=== PATIENT | male | born 1960 | race Caucasian/White ===

== ENCOUNTER 2023-03-15 14:50 | Inpatient (IN) | payer SELFPAY ==
[~2023-03-15] VITALS: Ht 172 cm; Wt 94.6 kg
--- NOTE | 2023-03-15 15:24 | ED Chest Pain ---
General Chief Complaint: Chest Pain Stated Complaint: SOA|COUGH|CONGESTION Source: patient Exam Limitations: no limitations History of Present Illness Date Seen by Provider: Mar 15, 2023 Time Seen by Provider: 15:21 Initial Comments Patient is a 63-year-old male with a history of arthritis, who presents ED with flulike symptoms. Symptoms started last after he was karen a shed. Started feeling sick fatigue weak cough sore throat. States he had a low-grade temperature. Started having diarrhea several bouts which ended earlier today. Reports a wet productive cough with shortness of breath. Reports reddish-brown sputum production with the cough. Associate shortness of breath. Patient reports developed left-sided chest pain this morning with cough. Patient states the weakness and fatigue is getting worse. no history of A-fib. On arrival A- fib. Not currently on blood thinners. Denies history of coronary artery disease, COPD diabetes, hypertension. Patient denies history of smoking. Patient has been taking ibuprofen at home. Allergies and Home Medications Allergies Coded Allergies: codeine (Verified Allergy, Unknown, 03/15/23) Patient Home Medication List Home Medication List Reviewed: Yes Review of Systems Review of Systems Constitutional: chills; No diaphoresis; fever, malaise EENTM: No Eye Pain Respiratory: Cough, Shortness of Air Cardiovascular: Chest Pain Gastrointestinal: Denies Abdominal Pain; Diarrhea; Denies Nausea, Denies Vomiting Genitourinary: Denies Burning, Denies Discharge, Denies Drainage Musculoskeletal: No back pain Skin: No change in color, No change in hair/nails All Other Systems Reviewed Negative Unless Noted: Yes Physical Exam Vital Signs Vital Signs - First Documented 03/15/23 15:05 Temp 36.3 Pulse 124 Resp 20 B/P (MAP) 114/95 (101) Pulse Ox 96 O2 Delivery Room Air Capillary Refill : Height, Weight, BMI Height: '" Weight: lbs. oz. kg; BMI Method: General Appearance: No Apparent Distress, WD/WN HEENT: PERRL/EOMI, TMs Normal, Normal ENT Inspection, Pharynx Normal Neck: Full Range of Motion, Non Tender, Supple Respiratory: Chest Non Tender, Lungs Clear, Normal Breath Sounds, No Accessory Muscle Use, No Respiratory Distress Cardiovascular: No Edema, No Gallop, No JVD, No Murmur, Irregularly Irregular Gastrointestinal: Normal Bowel Sounds, No Organomegaly, No Pulsatile Mass, Non Tender Extremity: Normal Capillary Refill, Normal Inspection, Normal Range of Motion Neurologic/Psychiatric: Alert, Oriented x3, No Motor/Sensory Deficits, Normal Mood/Affect, 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 and 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 cork II-XII Norm as Tested Skin: Normal Color, Warm/Dry Focused Exam Lactate Level 03/15/23 15:25: Lactic Acid Level 1.02 Lactic Acid Level Laboratory Tests Test 03/15/23 15:25 Lactic Acid Level 1.02 MMOL/L (0.50-2.00) Progress/Results/Core Measures Results/Orders Lab Results Laboratory Tests Test 03/15/23 15:25 03/15/23 16:55 Range/Units White Blood Count 10.2 4.3-11.0 10^3/uL Red Blood Count 5.22 4.30-5.52 10^6/uL Hemoglobin 15.6 13.3-17.7 g/dL Hematocrit 44 40-54 % Mean Corpuscular Volume 85 80-99 fL Mean Corpuscular Hemoglobin 30 25-34 pg Mean Corpuscular Hemoglobin Concent 35 32-36 g/dL Red Cell Distribution Width 12.4 10.0-14.5 % Platelet Count 296 130-400 10^3/uL Mean Platelet Volume 9.9 9.0-12.2 fL Immature Granulocyte % (Auto) 3 % Neutrophils (%) (Auto) 75 42-75 % Lymphocytes (%) (Auto) 12 12-44 % Monocytes (%) (Auto) 10 0-12 % Eosinophils (%) (Auto) 0 0-10 % Basophils (%) (Auto) 0 0-10 % Neutrophils # (Auto) 7.7 1.8-7.8 10^3/uL Lymphocytes # (Auto) 1.2 1.0-4.0 10^3/uL Monocytes # (Auto) 1.0 0.0-1.0 10^3/uL Eosinophils # (Auto) 0.0 0.0-0.3 10^3/uL Basophils # (Auto) 0.0 0.0-0.1 10^3/uL Immature Granulocyte # (Auto) 0.3 H 0.0-0.1 10^3/uL Prothrombin Time 15.3 H 12.2-14.7 SEC INR Comment 1.2 0.8-1.4 Activated Partial Thromboplast Time 41 H 24-35 SEC D-Dimer 1.66 H 0.00-0.49 UG/ML Sodium Level 133 L 135-145 MMOL/L Potassium Level 3.8 3.6-5.0 MMOL/L Chloride Level 100 98-107 MMOL/L Carbon Dioxide Level 19 L 21-32 MMOL/L Anion Gap 14 5-14 MMOL/L Blood Urea Nitrogen 22 H 7-18 MG/DL Creatinine 0.96 0.60-1.30 MG/DL Estimat Glomerular Filtration Rate 89 BUN/Creatinine Ratio 23 Glucose Level 102 70-105 MG/DL Lactic Acid Level 1.02 0.50-2.00 MMOL/L Calcium Level 9.1 8.5-10.1 MG/DL Corrected Calcium 9.5 8.5-10.1 MG/DL Total Bilirubin 0.6 0.1-1.0 MG/DL Aspartate Amino Transf (AST/SGOT) 22 5-34 U/L Alanine Aminotransferase (ALT/SGPT) 23 0-55 U/L Alkaline Phosphatase 74 40-136 U/L Troponin I < 0.028 <0.028 NG/ML B-Type Natriuretic Peptide 294.8 H <100.0 PG/ML Total Protein 7.3 6.4-8.2 GM/DL Albumin 3.5 3.2-4.5 GM/DL Influenza Type A (RT-PCR) Not Detected Not Detecte Influenza Type B (RT-PCR) Not Detected Not Detecte SARS-CoV-2 RNA (RT-PCR) Not Detected Not Detecte Urine Color YELLOW Urine Clarity CLEAR Urine pH 6.5 5-9 Urine Specific [place] 1.015 L 1.016-1.022 Urine Protein 1+ H NEGATIVE Urine Glucose (UA) NEGATIVE NEGATIVE Urine Ketones 2+ H NEGATIVE Urine Nitrite NEGATIVE NEGATIVE Urine Bilirubin 1+ H NEGATIVE Urine Urobilinogen 1.0 < = 1.0 MG/DL Urine Leukocyte Esterase NEGATIVE NEGATIVE Urine RBC (Auto) NEGATIVE NEGATIVE Urine RBC NONE /HPF Urine WBC RARE /HPF Urine Squamous Epithelial Cells NONE /HPF Urine Crystals NONE /LPF Urine Bacteria TRACE /HPF Urine Casts NONE /LPF Urine Mucus NEGATIVE /LPF Urine Culture Indicated CULTURE PENDING My Orders Orders - EVELYN VO Ekg Tracing (03/15/23 15:14) Cbc With Automated Diff (03/15/23 15:18) Comprehensive Metabolic Panel (03/15/23 15:18) Blood Culture (03/15/23 15:18) Sputum Culture (03/15/23 15:18) Urinalysis (03/15/23 15:18) Urine Culture (03/15/23 15:18) Protime With Inr (03/15/23 15:18) Partial Thromboplastin Time (03/15/23 15:18) Chest 1 View, Ap/Pa Only (03/15/23 15:18) Ed Iv/Invasive Line Start (03/15/23 15:18) O2 (03/15/23 15:18) Lactic Acid Analyzer (03/15/23 15:18) Influenza A And B By Pcr (03/15/23 15:18) Ns Iv 1000 Ml (Sodium Chloride 0.9%) (03/15/23 15:30) Ceftriaxone Iv/Im (Rocephin Iv/Im) (03/15/23 15:30) Covid 19 Inhouse Test (03/15/23 15:18) Troponin I [place] (03/15/23 15:18) Bnp [place] (03/15/23 15:18) Diltiazem Injection (Cardizem Injection) (03/15/23 15:30) Ns Iv 1000 Ml (Sodium Chloride 0.9%) (03/15/23 16:29) Fibrin Degradation Products (03/15/23 16:41) Ct Angio Chest W (R/O Pe) (03/15/23 17:23) Iohexol Injection (Omnipaque 350 Mg/Ml 1 (03/15/23 17:45) Ns (Ivpb) (Sodium Chloride 0.9% Ivpb Bag (03/15/23 17:45) Azithromycin Injection (Zithromax Inject (03/15/23 18:00) Ed Admission (Communication) (03/15/23 17:57) Medications Given in ED Current Medications Medications Dose Ordered Sig/Diana Route Start Time Stop Time Status Last Admin Dose Admin Azithromycin 500 mg/Sodium Chloride 250 ml @ 250 mls/hr ONCE ONCE IV 03/15/23 18:00 03/15/23 18:59 DC 03/15/23 18:15 250 MLS/HR Ceftriaxone Sodium 1000 mg/ Sodium Chloride 50 ml @ 100 mls/hr ONCE ONCE IV 03/15/23 15:30 03/15/23 15:59 DC 03/15/23 16:21 100 MLS/HR Diltiazem HCl 10 mg ONCE ONCE IVP 03/15/23 15:30 03/15/23 15:31 DC 03/15/23 16:22 10 MG Iohexol 100 ml ONCE ONCE IV 03/15/23 17:45 03/15/23 17:46 DC 03/15/23 17:41 88 ML Sodium Chloride 100 ml ONCE ONCE IV 03/15/23 17:45 03/15/23 17:46 DC 03/15/23 17:41 70 ML Vital Signs/I&O 03/15/23 03/15/23 15:05 16:22 Temp 36.3 Pulse 124 123 Resp 20 B/P (MAP) 114/95 (101) 104/66 Pulse Ox 96 O2 Delivery Room Air Comment Atrial fibrillation at 126 bpm, QRS duration 100 MS, QTc 436 MS Departure Communication (PCP) Patient is a 63-year-old male who presents to the ED for flulike symptoms since last after karen a shed. Patient reports brownish sputum production. Shortness of breath. Does report some chest pain today. Patient on arrival heart rate was near 140 appear to be in A-fib with RVR new onset. Due to new onset A-fib with RVR cardiac work-up, chest x-ray general lab work as well as septic work-up with added blood cultures and lactic acid. CBC was grossly unremarkable. CMP showed a sodium 133. Normal troponin. BNP just above 200. Chest x-ray concerning for pneumonia. Patient D-dimer 1.66. Patient heart rate continue to fluctuate between 120 and 144 bpm. Patient Was given 10 mg of Cardizem with near improvement to about 101 bpm. Patient was not started on a Cardizem drip. Due to elevated D-dimer CT angio of the chest was ordered which was negative for PE but did note pneumonia. No pneumothorax. Patient was started on a liter of fluid. Normal lactic acid. Does not appear septic. COVID influenza was negative. Patient was given Rocephin initially on arrival. Added azithromycin for community-acquired pneumonia. Patient was discussed with hospitalist Dr. Gallagher who accepts patient. Patient will be admitted to the ICU as he may require a Cardizem drip. Not currently on any anticoagulant. Anticoagulant will be provided by Dr. Gallagher. Will consult with Dr. Javier Impression Primary Impression: Pneumonia Additional Impression: Afib Disposition: ADMITTED INPATIENT Condition: Stable Admissions Decision to Admit Reason: Admit from ER (General) Decision to Admit/Date: Mar 15, 2023 Time/Decision to Admit Time: 16:43 Departure-Patient Inst. Referrals: URIAH LIU (PCP/Family) Primary Care Physician EVELYN VO Mar 15, 2023 15:24
[2023-03-15] MEDS ORDERED: NS IV 1000 ML 1,000 ML IV SCH (15:30)
[2023-03-15] MEDS ORDERED: cefTRIAXone IV/IM 1,000 MG in NS (IVPB) 50 ML IV ONE (15:30)
[2023-03-15 16:00] LABS: ALBUMIN 3.5 GM/DL (3.2-4.5); CHLORIDE 100 MMOL/L (98-107); POTASSIUM 3.8 MMOL/L (3.6-5.0); SODIUM 133 MMOL/L (135-145)
[2023-03-15 16:01] LABS: CALCIUM 9.1 MG/DL (8.5-10.1)
[2023-03-15 16:02] LABS: GLUCOSE 102 MG/DL (70-105); TOTAL PROTEIN 7.3 GM/DL (6.4-8.2)
[2023-03-15 16:03] LABS: CARBON DIOXIDE 19 MMOL/L (21-32)
[2023-03-15 16:04] LABS: BILIRUBIN,TOTAL 0.6 MG/DL (0.1-1.0)
[2023-03-15 16:06] LABS: ALKALINE PHOSPHATASE 74 U/L (40-136); CREATININE SERUM 0.96 MG/DL (0.60-1.30); GFR ESTIMATED 89
[2023-03-15 16:07] LABS: BUN/CREATININE RATIO 23; INR 1.2 (0.8-1.4); PROTHROMBIN TIME PATIENT 15.3 SEC (12.2-14.7)
[2023-03-15 16:09] LABS: ALANINE AMINOTRANSFERASE 23 U/L (0-55); BASOPHILS % (AUTO) 0 % (0-10); EOSINOPHILS % (AUTO) 0 % (0-10); HEMATOCRIT 44 % (40-54); HEMOGLOBIN 15.6 g/dL (13.3-17.7); LYMPHOCYTES # (AUTO) 1.2 10^3/uL (1.0-4.0); LYMPHOCYTES % (AUTO) 12 % (12-44); MEAN CORPUSCULAR HEMOGLOBIN 30 pg (25-34); MEAN CORPUSCULAR HGB CONC 35 g/dL (32-36); MEAN CORPUSCULAR VOLUME 85 fL (80-99); MEAN PLATELET VOLUME 9.9 fL (9.0-12.2); MONOCYTES % (AUTO) 10 % (0-12); NEUTROPHILS # (AUTO) 7.7 10^3/uL (1.8-7.8); NEUTROPHILS % (AUTO) 75 % (42-75); PLATELET COUNT 296 10^3/uL (130-400); WHITE BLOOD COUNT 10.2 10^3/uL (4.3-11.0)
--- NOTE | 2023-03-15 16:12 | Diagnostic Imaging Report ---
CHEST 1 VIEW, AP/PA ONLY INDICATION: Chest pain. COMPARISON: None available. FINDINGS: Consolidations are present in the medial aspect of the right lung base. No pleural effusion or pneumothorax. Normal heart size. IMPRESSION: 1. Right basilar consolidations are likely due to pneumonia. Dictated by: Dictated on workstation # [id number]
[2023-03-15] MEDS ORDERED: NS IV 1000 ML 1,000 ML IV STA (16:29)
[2023-03-15 17:01] LABS: CLARITY,URINE CLEAR; COLOR,URINE YELLOW; GLUCOSE, URINE (UA) NEGATIVE (NEGATIVE); KETONES,URINE 2+ (NEGATIVE); LEUKOCYTE ESTERASE ,URINE NEGATIVE (NEGATIVE); NITRITE,URINE NEGATIVE (NEGATIVE); PH,URINE 6.5 (5-9); PROTEIN,URINE 1+ (NEGATIVE)
[2023-03-15 17:21] LABS: BACTERIA,URINE TRACE /HPF; WBC,URINE RARE /HPF
--- NOTE | 2023-03-15 17:28 | History & Physical-Hospitalist ---
History of Present Illness HPI/Chief Complaint Patient is 63-year-old male who presented to the emergency department due to shortness of breath and cough. Reports his symptoms started roughly 4 days ago and have progressed since then. He reports feeling chilled and cold and just overall not feeling well. He was found to have a pneumonia on imaging and incidentally found to be in atrial fibrillation with rapid ventricular rate. His heart rate was into the 130s. He denies any history of this. He denies any chest pain or palpitations. He does have some shortness of breath that started roughly 4 days ago. He was given IV Cardizem in the ER which improved his rate though he remains in atrial fibrillation. He is being admitted to observation for further cardiac work-up and IV antibiotics. Source: patient Date Seen 03/15/23 Time Seen by a Provider: 17:24 Attending Physician Vitor Richey PCP Admitting Physician: Attending Physician: Referring Physician Date of Admission Home Medications & Allergies Home Medications Reviewed patient Home Medication Reconciliation performed by pharmacy medication reconciliations lay out technician and/or nursing. Patients Allergies have been reviewed. Allergies Allergies Coded Allergies codeine (Verified Allergy, Unknown, 03/15/23) Past Zqdauoq-Migtsr-Lzbduo Hx Current Status Communicates: Verbally Primary Language: Upper Sorbian Preferred Spoken Language: Upper Sorbian Review of Systems Constitutional: see HPI Physical Exam Physical Exam Vital Signs Vital Signs - First Documented 03/15/23 15:05 Temp 36.3 Pulse 124 Resp 20 B/P (MAP) 114/95 (101) Pulse Ox 96 O2 Delivery Room Air Capillary Refill : Height, Weight, BMI Height: '" Weight: lbs. oz. kg; 30.00 BMI Method: General Appearance: No Apparent Distress, WD/WN Respiratory: No Accessory Muscle Use, No Respiratory Distress, Crackles (on right in base) Cardiovascular: Regular Rate, Rhythm, No Murmur Gastrointestinal: Normal Bowel Sounds, Non Tender, Soft Neurologic/Psychiatric: Alert, Oriented x3 Results Results/Procedures Labs Laboratory Tests 03/15/23 15:25 03/16/23 03:51 Patient resulted labs reviewed. Imaging: Reviewed Imaging Report Imaging [facility], [place] NAME: DRISS ROMAN [facility] REC#: [id number] PT STATUS: REG ER : 1960 PHYSICIAN: EVELYN VO ADMIT DATE: 03/15/23/ER Draft Date of Exam:03/15/23 CHEST 1 VIEW, AP/PA ONLY CHEST 1 VIEW, AP/PA ONLY INDICATION: Chest pain. COMPARISON: None available. FINDINGS: Consolidations are present in the medial aspect of the right lung base. No pleural effusion or pneumothorax. Normal heart size. IMPRESSION: 1. Right basilar consolidations are likely due to pneumonia. Dictated on workstation # [id number] Dict: 03/15/23 1610 Trans: 03/15/23 1611 [id number] Interpreted by: HONEY ROCHA MD Electronically signed by: Assessment/Plan Admission Diagnosis Sepsis due to CAP A fib with RVR Admission Status: Observation Assessment and Plan Sepsis due to CAP [place] with leukocytosis on arrival Continue CAP coverage MAT protocol Await cultures A fib with RVR New onset Cardiology consulted, appreciate recs Rate improved with cardizem Start oral cardizem Start eliquis for stroke ppx DVT ppx: Eliquis as above KATIE JOVEL MD Mar 15, 2023 5:27 pm
[2023-03-15] MEDS ORDERED: IOHEXOL 350 MG/ML 100 ML (OMNIPAQUE 350) VIAL IV ONE (17:45)
[2023-03-15] MEDS ORDERED: NS 100 ML (IVPB) BAG IV ONE (17:45)
--- NOTE | 2023-03-15 17:51 | Diagnostic Imaging Report ---
INDICATION: Left-sided chest pain. There are patchy infiltrates at both lung bases right greater than left. There is a moderate-sized sliding hiatal hernia. There are no pulmonary emboli. There is no evidence of right ventricular strain. There is some calcific atherosclerosis of aorta but no evidence for aneurysm. IMPRESSION: Patchy bilateral basilar infiltrate suspicious for pneumonia. Hiatal hernia. No evidence for pulmonary embolism. Dictated by: Dictated on workstation # [id number]
[2023-03-15] MEDS ORDERED: AZITHROMYCIN INJECTION 500 MG in NS (IVPB) 250 ML IV ONE ×2 (18:00→18:30)
[2023-03-15] MEDS ORDERED: ONDANSETRON 4 MG/2 ML (SDV) Z0FRAN IV PRN (18:30)
[2023-03-15] MEDS ORDERED: BISACODYL 10 MG SUPP (DULCOLAX) PR PRN (18:30)
[2023-03-15] MEDS ORDERED: ACETAMINOPHEN 325 MG TABLET PO PRN (18:30)
[2023-03-15] MEDS ORDERED: ANTACID SUSP 30 ML UDC (MYLANTA) PO PRN (18:30)
[2023-03-15] MEDS ORDERED: polyethylene glycoL POWDER 17 GM (MIRALAX) PACK PO PRN (18:30)
[2023-03-15] MEDS ORDERED: CALCIUM CARBONATE 500 MG (TUMS) TAB.CHEW PO PRN (18:30)
[2023-03-15] MEDS ORDERED: PATIENT MAY USE OWN MEDS, ALL PO SCH (18:30)
[2023-03-15] MEDS ORDERED: dilTIAZem120 MG (CARDIZEM CD) CAP PO NR (18:45)
[2023-03-15] MEDS: NS IV 1000 ML 1,000 ML IV SCH (18:54)
[2023-03-15 19:55] LABS: BILIRUBIN,URINE 1+ (NEGATIVE)
[2023-03-15] MEDS: APIXABAN 5 MG (ELIQUIS) TABLET PO SCH (21:04)
[2023-03-15] MEDS: MELATONIN 3 MG TABLET PO PRN (23:41)
[2023-03-16] MEDS: NS IV 1000 ML 1,000 ML IV SCH ×3 (03:08→16:56)
[2023-03-16 04:54] LABS: HEMATOCRIT 42 % (40-54); HEMOGLOBIN 14.6 g/dL (13.3-17.7); MEAN CORPUSCULAR HEMOGLOBIN 30 pg (25-34); MEAN CORPUSCULAR HGB CONC 35 g/dL (32-36); MEAN CORPUSCULAR VOLUME 86 fL (80-99); MEAN PLATELET VOLUME 10.1 fL (9.0-12.2); PLATELET COUNT 253 10^3/uL (130-400); WHITE BLOOD COUNT 7.7 10^3/uL (4.3-11.0)
[2023-03-16 07:05] LABS: CALCIUM 8.6 MG/DL (8.5-10.1); CREATININE SERUM 0.87 MG/DL (0.60-1.30); POTASSIUM 3.9 MMOL/L (3.6-5.0)
[2023-03-16] MEDS: dilTIAZem120 MG (CARDIZEM CD) CAP PO SCH (08:03)
[2023-03-16] MEDS: APIXABAN 5 MG (ELIQUIS) TABLET PO SCH ×2 (08:03→20:42)
[2023-03-16] MEDS: AZITHROMYCIN 250 MG TAB (ZITHROMAX) PO SCH (08:03)
--- NOTE | 2023-03-16 08:05 | Consultation-Cardiology ---
HPI-Cardiology Cardiology Consultation Date of Consultation 03/16/23 Date of Admission Time Seen by Provider: 08:02 Indication: Atrial fibrillation HPI 63-year-old gentleman with a history of arthritis, had fever and cough. Generalized weakness. Low-grade temperature, started to have diarrhea. Came into the emergency room and noted to be in atrial fibrillation. Had pneumonia and started on antibiotics. Still having cough and dyspnea, still borderline tachycardic. No previous cardiac history. No history of atrial fibrillation. Home Medications & Allergies Allergies: Coded Allergies: codeine (Verified Allergy, Unknown, 03/15/23) Home Medication List Reviewed: Yes AGR-Bounlm-Ymspar Hx Patient Social History Marital Status: Employed/Student: employed Have you traveled recently?: No Alcohol Use?: No Past Medical History Discussed below Family Medical History Significant Family History: No Pertinent Family Hx Review of Systems-General Review of Systems Constitutional: chills; No diaphoresis; fever, malaise EENTM: see HPI, no symptoms reported Respiratory: no symptoms reported, see HPI Cardiovascular: see HPI; No chest pain, No edema, No Hx of Intervention; palp itations; No syncope, No vascular heart diseas, No other Gastrointestinal: no symptoms reported, see HPI Genitourinary: no symptoms reported, see HPI Musculoskeletal: No back pain Skin: No change in color, No change in hair/nails Psychiatric/Neurological: No Symptoms Reported, See HPI All Other Systems Reviewed Negative Unless Noted: Yes Reviewed Test Results Reviewed Test Results Lab Laboratory Tests Test 03/15/23 15:25 03/15/23 16:55 03/16/23 03:51 Range/Units White Blood Count 10.2 7.7 4.3-11.0 10^3/uL Red Blood Count 5.22 4.90 4.30-5.52 10^6/uL Hemoglobin 15.6 14.6 13.3-17.7 g/dL Hematocrit 44 42 40-54 % Mean Corpuscular Volume 85 86 80-99 fL Mean Corpuscular Hemoglobin 30 30 25-34 pg Mean Corpuscular Hemoglobin Concent 35 35 32-36 g/dL Red Cell Distribution Width 12.4 12.6 10.0-14.5 % Platelet Count 296 253 130-400 10^3/uL Mean Platelet Volume 9.9 10.1 9.0-12.2 fL Immature Granulocyte % (Auto) 3 % Neutrophils (%) (Auto) 75 42-75 % Lymphocytes (%) (Auto) 12 12-44 % Monocytes (%) (Auto) 10 0-12 % Eosinophils (%) (Auto) 0 0-10 % Basophils (%) (Auto) 0 0-10 % Neutrophils # (Auto) 7.7 1.8-7.8 10^3/uL Lymphocytes # (Auto) 1.2 1.0-4.0 10^3/uL Monocytes # (Auto) 1.0 0.0-1.0 10^3/uL Eosinophils # (Auto) 0.0 0.0-0.3 10^3/uL Basophils # (Auto) 0.0 0.0-0.1 10^3/uL Immature Granulocyte # (Auto) 0.3 H 0.0-0.1 10^3/uL Prothrombin Time 15.3 H 12.2-14.7 SEC INR Comment 1.2 0.8-1.4 Activated Partial Thromboplast Time 41 H 24-35 SEC D-Dimer 1.66 H 0.00-0.49 UG/ML Sodium Level 133 L 136 135-145 MMOL/L Potassium Level 3.8 3.9 3.6-5.0 MMOL/L Chloride Level 100 104 98-107 MMOL/L Carbon Dioxide Level 19 L 18 L 21-32 MMOL/L Anion Gap 14 14 5-14 MMOL/L Blood Urea Nitrogen 22 H 16 7-18 MG/DL Creatinine 0.96 0.87 0.60-1.30 MG/DL Estimat Glomerular Filtration Rate 89 98 BUN/Creatinine Ratio 23 18 Glucose Level 102 92 70-105 MG/DL Lactic Acid Level 1.02 0.50-2.00 MMOL/L Calcium Level 9.1 8.6 8.5-10.1 MG/DL Corrected Calcium 9.5 8.5-10.1 MG/DL Total Bilirubin 0.6 0.1-1.0 MG/DL Aspartate Amino Transf (AST/SGOT) 22 5-34 U/L Alanine Aminotransferase (ALT/SGPT) 23 0-55 U/L Alkaline Phosphatase 74 40-136 U/L Troponin I < 0.028 <0.028 NG/ML B-Type Natriuretic Peptide 294.8 H <100.0 PG/ML Total Protein 7.3 6.4-8.2 GM/DL Albumin 3.5 3.2-4.5 GM/DL Influenza Type A (RT-PCR) Not Detected Not Detecte Influenza Type B (RT-PCR) Not Detected Not Detecte SARS-CoV-2 RNA (RT-PCR) Not Detected Not Detecte Urine Color YELLOW Urine Clarity CLEAR Urine pH 6.5 5-9 Urine Specific [place] 1.015 L 1.016-1.022 Urine Protein 1+ H NEGATIVE Urine Glucose (UA) NEGATIVE NEGATIVE Urine Ketones 2+ H NEGATIVE Urine Nitrite NEGATIVE NEGATIVE Urine Bilirubin 1+ H NEGATIVE Urine Urobilinogen 1.0 < = 1.0 MG/DL Urine Leukocyte Esterase NEGATIVE NEGATIVE Urine RBC (Auto) NEGATIVE NEGATIVE Urine RBC NONE /HPF Urine WBC RARE /HPF Urine Squamous Epithelial Cells NONE /HPF Urine Crystals NONE /LPF Urine Bacteria TRACE /HPF Urine Casts NONE /LPF Urine Mucus NEGATIVE /LPF Urine Culture Indicated CULTURE PENDING Physical Exam Physical Exam Vital Signs Vital Signs - First Documented 03/15/23 15:05 Temp 36.3 Pulse 124 Resp 20 B/P (MAP) 114/95 (101) Pulse Ox 96 O2 Delivery Room Air Capillary Refill : Height, Weight, BMI Height: '" Weight: lbs. oz. kg; 32.21 BMI Method: General Appearance: No Apparent Distress, WD/WN HEENT: PERRL/EOMI, TMs Normal, Normal ENT Inspection, Pharynx Normal Neck: Full Range of Motion, Non Tender, Supple Respiratory: Chest Non Tender, Lungs Clear, Normal Breath Sounds, No Accessory Muscle Use, No Respiratory Distress Cardiovascular: No Edema, No Gallop, No JVD, No Murmur, Irregularly Irregular Gastrointestinal: Normal Bowel Sounds, No Organomegaly, No Pulsatile Mass, Non Tender Extremity: Normal Capillary Refill, Normal Inspection, Normal Range of Motion Neurologic/Psychiatric: Alert, Oriented x3, No Motor/Sensory Deficits, Normal Mood/Affect, 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 Probably new onset. Unknown duration. Cannot tolerate PAOLA due to the pneumonia Pneumonia, right lower lobe, managed by medical team Fever and chills secondary to pneumonia Palpitation. WALT REYES MD Mar 16, 2023 08:05
[2023-03-16] MEDS ORDERED: dilTIAZem DRIP PRE-MIX 125 ML IV SCH (08:15)
[2023-03-16] MEDS: dilTIAZem DRIP PRE-MIX 125 ML IV SCH ×2 (09:23→19:17)
[2023-03-16] MEDS: guaiFENesin/DM (ROBITUSSIN DM) 10 ML UDC PO PRN ×3 (09:47→22:26)
--- NOTE | 2023-03-16 11:09 | Progress Note - Hospitalist ---
Subjective HPI/CC On Admission Date Seen by Provider: Mar 16, 2023 Patient is 63-year-old male who presented to the emergency department due to shortness of breath and cough. Reports his symptoms started roughly 4 days ago and have progressed since then. He reports feeling chilled and cold and just overall not feeling well. He was found to have a pneumonia on imaging and incidentally found to be in atrial fibrillation with rapid ventricular rate. His heart rate was into the 130s. He denies any history of this. He denies any chest pain or palpitations. He does have some shortness of breath that started roughly 4 days ago. He was given IV Cardizem in the ER which improved his rate though he remains in atrial fibrillation. He is being admitted to observation for further cardiac work-up and IV antibiotics. Subjective/Events-last exam Pt reports feeling about the same. No new complaints. Focused Exam Lactate Level 03/15/23 15:25: Lactic Acid Level 1.02 Objective Exam Vital Signs Vital Signs Date Time Temp Pulse Resp B/P (MAP) Pulse Ox O2 Delivery O2 Flow Rate FiO2 03/16/23 10:00 89 17 108/85 (93) 94 Room Air 03/16/23 07:32 37.6 Capillary Refill : General Appearance: No Apparent Distress Respiratory: Crackles (right base ) Cardiovascular: No Murmur, Irregularly Irregular Gastrointestinal: Normal Bowel Sounds, Non Tender, Soft Neurologic/Psychiatric: Alert, Oriented x3 Results/Procedures Lab Laboratory Tests 03/15/23 15:25 03/16/23 03:51 Patient resulted labs reviewed. Imaging: Reviewed Imaging Report Assessment/Plan Assessment and Plan Assess & Plan/Chief Complaint Sepsis due to CAP Continue CAP coverage MAT protocol Await cultures- still pending A fib with RVR New onset Cardiology consulted, appreciate recs Started on cardizem gtt Continue eliquis for stroke ppx Echo pending DVT ppx: Eliquis as above KATIE JOVEL MD Mar 16, 2023 11:09 am
--- NOTE | 2023-03-16 12:46 | Tele-ICU Progress Note ---
Subjective Subjective/Events-last exam Video assessment done , Hemodynamically stable Available charting reviewed, discussed with RN NO TELE-ICU CONSULT REQUESTED CONTINUE TO MONITOR PER USUAL TELE-ICU PROTOCOL No need for Tele-ICU interventions Plans as delineated by bedside physicians / consultants HPI: 63 y/o M with hx of arthritis presented to ED with fevers, generalized weakness found to be in Afib. CT chest with no evidence of PE however with bilateral bibasilar infiltrates consistent with pneumonia. Started on Cardizem gtt as well as Eliquis. Cardiology following. Pneumonia: Cont anitbiotics, sputum culture Afib: Cont Cardizem gtt. May need cardioversion once pneumonia resolves if still in afib Remaining plan per primary Sepsis Event Evaluation Height, Weight, BMI Height: '" Weight: lbs. oz. kg; 32.21 BMI Method: Focused Exam Lactate Level 03/15/23 15:25: Lactic Acid Level 1.02 Exam Exam Patient acknowledged, consented, and participated in this virtual visit which was conducted using real time audio/video Vital Signs Date Time Temp Pulse Resp B/P (MAP) Pulse Ox O2 Delivery O2 Flow Rate FiO2 03/16/23 12:00 80 16 107/75 (86) 94 Room Air 03/16/23 11:54 36.5 03/16/23 11:16 98 Room Air 03/16/23 11:00 89 16 98/65 (76) 94 Room Air 03/16/23 10:00 89 17 108/85 (93) 94 Room Air 03/16/23 09:24 105/79 03/16/23 09:23 99 105/79 03/16/23 09:00 111 24 105/79 (88) 93 Room Air 03/16/23 08:00 118 11 127/90 (102) 94 Room Air 03/16/23 07:32 37.6 03/16/23 07:30 35.9 03/16/23 07:23 97 03/16/23 07:00 97 23 119/81 (94) 93 Room Air 03/16/23 06:00 98 Room Air 03/16/23 03:00 111 14 111/108 (109) 97 Room Air 03/16/23 02:00 100 18 164/112 (129) 93 Room Air 03/16/23 01:01 103 03/16/23 01:00 93 16 107/75 (86) 92 Room Air 03/16/23 00:00 104 15 110/83 (92) 94 Room Air 03/16/23 00:00 37.2 Room Air 03/16/23 00:00 96 Room Air 03/15/23 23:00 98 10 100/80 (87) 94 Room Air 03/15/23 22:00 105 21 105/74 (84) 94 Room Air 03/15/23 21:06 37.2 03/15/23 21:00 106 16 111/88 (96) 93 Room Air 03/15/23 20:39 95 Room Air 03/15/23 20:00 112 15 123/90 (101) 94 Room Air 03/15/23 19:05 106 03/15/23 19:00 110 17 106/84 (91) 94 Room Air 03/15/23 18:47 Room Air 03/15/23 18:30 37.4 113 20 109/85 (93) 95 Room Air 03/15/23 18:25 110 25 123/92 94 Room Air 03/15/23 16:22 123 104/66 03/15/23 15:05 36.3 124 20 114/95 (101) 96 Room Air I & O 03/16/23 07:00 Intake Total 120 ml Output Total 1275 ml Balance -1155 ml Height & Weight Height: '" Weight: lbs. oz. kg; 32.21 BMI Method: General Appearance: No Apparent Distress, WD/WN HEENT: PERRL/EOMI, TMs Normal, Normal ENT Inspection, Pharynx Normal Neck: Full Range of Motion, Non Tender, Supple Respiratory: No Accessory Muscle Use, No Respiratory Distress, Crackles (on right in base) Cardiovascular: Regular Rate, Rhythm, No Murmur Extremity: Normal Capillary Refill, Normal Inspection, Normal Range of Motion Neurologic/Psychiatric: Alert, Oriented x3 Skin: Normal Color, Warm/Dry Results Lab Laboratory Tests 03/15/23 15:25 03/16/23 03:51 Assessment/Plan Assessment/Plan . MARK YA MD Mar 16, 2023 12:46
[2023-03-16] MEDS: cefTRIAXone IV/IM 1,000 MG in NS (IVPB) 50 ML IV SCH (16:56)
[2023-03-16 19:17] VITALS: BP 105/80
[2023-03-16] MEDS: MELATONIN 3 MG TABLET PO PRN (19:17)
[2023-03-17] MEDS: NS IV 1000 ML 1,000 ML IV SCH ×2 (01:27→10:40)
[2023-03-17] MEDS ORDERED: NS IV 500 ML 500 ML IV ONE (02:15)
[2023-03-17] MEDS: guaiFENesin/DM (ROBITUSSIN DM) 10 ML UDC PO PRN ×4 (03:50→21:07)
[2023-03-17 04:57] LABS: HEMATOCRIT 38 % (40-54); HEMOGLOBIN 12.7 g/dL (13.3-17.7); MEAN CORPUSCULAR HEMOGLOBIN 29 pg (25-34); MEAN CORPUSCULAR HGB CONC 34 g/dL (32-36); MEAN CORPUSCULAR VOLUME 87 fL (80-99); MEAN PLATELET VOLUME 9.5 fL (9.0-12.2); PLATELET COUNT 255 10^3/uL (130-400); WHITE BLOOD COUNT 7.2 10^3/uL (4.3-11.0)
[2023-03-17 05:21] LABS: CALCIUM 8.3 MG/DL (8.5-10.1); CREATININE SERUM 0.79 MG/DL (0.60-1.30); POTASSIUM 3.7 MMOL/L (3.6-5.0)
[2023-03-17 05:52] LABS: PHOSPHORUS 2.6 MG/DL (2.3-4.7)
[2023-03-17] MEDS ORDERED: NS IV 500 ML 500 ML IV PRN (06:15)
[2023-03-17] MEDS ORDERED: KCL 20 MEQ TAB (K-DUR) PO ONE (08:00)
[2023-03-17] MEDS: AZITHROMYCIN 250 MG TAB (ZITHROMAX) PO SCH (08:22)
[2023-03-17] MEDS: dilTIAZem120 MG (CARDIZEM CD) CAP PO SCH (08:22)
[2023-03-17] MEDS: APIXABAN 5 MG (ELIQUIS) TABLET PO SCH ×2 (08:22→19:50)
--- NOTE | 2023-03-17 10:42 | Cardiology Progress Note ---
Subjective Date Seen by Provider: Mar 17, 2023 Time Seen by Provider: 10:41 Subjective/Events-last exam Patient was seen at bedside, feeling better, breathing better, less cough Still in atrial fibrillation Review of Systems General: No Chills, No Night Sweats, No Fatigue, No Malaise, No Appetite, No Other HEENT: No Head Aches, No Visual Changes, No Eye Pain, No Ear Pain, No Dysphasia, No Sinus Congestion, No Post Nasal Drip, No Sore Throat, No Other Pulmonary: No Dyspnea, No Cough, No Pleuritic Chest Pain, No Other Cardiovascular: No: Chest Pain, Palpitations, Orthopnea, Paroxysmal Noc. Dyspnea, Edema, Lt Headedness, Other Focused Exam Lactate Level 03/15/23 15:25: Lactic Acid Level 1.02 Objective-Cardiology Exam Last Set of Vital Signs Vital Signs 03/17/23 10:00 Pulse 82 Resp 15 B/P (MAP) 109/78 (88) Pulse Ox 92 O2 Delivery Room Air I&O Intake and Output 03/17/23 00:00 Intake Total 1255 ml Output Total 2250 ml Balance -995 ml Intake Oral 1130 ml IV Total 125 ml Output Urine Total 2250 ml General: Alert, Oriented X3, Cooperative HEENT: Atraumatic, PERRLA Neck: Supple, No JVD, No Thyromegaly Lungs: Normal Air Movement, Other (Bilateral rhonchi) Heart: Normal S1, Normal S2, No Murmurs, Other (Atrial fibrillation) Abdomen: Normal Bowel Sounds, Soft, No Tenderness, No Hepatosplenomegaly, No Masses Extremities: No Clubbing, No Cyanosis, No Edema, Normal Pulses, No Tenderness/Swelling Skin: No Rashes, No Breakdown, No Significant Lesion Neuro: Normal Gait, Normal Speech, Strength at 5/5 X4 Ext, Normal Tone, Sensation Intact Psych/Mental Status: Mental Status NL, Mood NL Results Lab Laboratory Tests 03/17/23 04:26 A/P-Cardiology Admission Diagnosis Atrial fibrillation Tachycardia Pneumonia Fever Assessment/Plan Atrial fibrillation with rapid ventricular response Heart rate is better controlled on Cardizem I am planning to proceed with PAOLA and cardioversion in the morning Tachycardia, better controlled, still having few episodes of tachycardia. Pneumonia, right lower lobe, managed by medical team Palpitation. WALT REYES MD Mar 17, 2023 10:42
--- NOTE | 2023-03-17 11:35 | Progress Note - Hospitalist ---
Subjective HPI/CC On Admission Date Seen by Provider: Mar 17, 2023 Patient is 63-year-old male who presented to the emergency department due to shortness of breath and cough. Reports his symptoms started roughly 4 days ago and have progressed since then. He reports feeling chilled and cold and just overall not feeling well. He was found to have a pneumonia on imaging and incidentally found to be in atrial fibrillation with rapid ventricular rate. His heart rate was into the 130s. He denies any history of this. He denies any chest pain or palpitations. He does have some shortness of breath that started roughly 4 days ago. He was given IV Cardizem in the ER which improved his rate though he remains in atrial fibrillation. He is being admitted to observation for further cardiac work-up and IV antibiotics. Subjective/Events-last exam Pt reports feeling better. NO complaints. HR improved off. Focused Exam Lactate Level 03/15/23 15:25: Lactic Acid Level 1.02 Objective Exam Vital Signs Vital Signs Date Time Temp Pulse Resp B/P (MAP) Pulse Ox O2 Delivery O2 Flow Rate FiO2 03/17/23 11:00 78 126/81 (96) 93 Room Air 03/17/23 10:00 15 03/17/23 08:00 36.8 Capillary Refill : General Appearance: No Apparent Distress, WD/WN Respiratory: Lungs Clear, No Respiratory Distress Cardiovascular: No Murmur, Irregularly Irregular Gastrointestinal: Normal Bowel Sounds, Non Tender, Soft Neurologic/Psychiatric: Alert, Oriented x3 Results/Procedures Lab Laboratory Tests 03/17/23 04:26 Patient resulted labs reviewed. Imaging: Reviewed Imaging Report Assessment/Plan Assessment and Plan Assess & Plan/Chief Complaint Sepsis due to CAP Continue CAP coverage MAT protocol No growth on cultures A fib with RVR New onset Cardiology consulted, appreciate recs Rate improved off gtt Planning cardioversion tomorrow Continue eliquis for stroke ppx Echo with preserved EF DVT ppx: Eliquis as above KATIE JOVEL MD Mar 17, 2023 11:35 am
[2023-03-17] MEDS: cefTRIAXone IV/IM 1,000 MG in NS (IVPB) 50 ML IV SCH (16:56)
[2023-03-17] MEDS ORDERED: LIDOCAINE 2% VISCOUS 15 ML UDC ONE (17:31)
[2023-03-18 05:01] LABS: HEMATOCRIT 39 % (40-54); HEMOGLOBIN 13.3 g/dL (13.3-17.7); MEAN CORPUSCULAR HEMOGLOBIN 30 pg (25-34); MEAN CORPUSCULAR HGB CONC 34 g/dL (32-36); MEAN CORPUSCULAR VOLUME 87 fL (80-99); PLATELET COUNT 350 10^3/uL (130-400); WHITE BLOOD COUNT 8.9 10^3/uL (4.3-11.0)
[2023-03-18 05:08] LABS: POTASSIUM 3.9 MMOL/L (3.6-5.0)
[2023-03-18 05:09] LABS: CALCIUM 8.3 MG/DL (8.5-10.1)
[2023-03-18 05:13] LABS: CREATININE SERUM 0.81 MG/DL (0.60-1.30); PHOSPHORUS 2.9 MG/DL (2.3-4.7)
[2023-03-18] MEDS: guaiFENesin/DM (ROBITUSSIN DM) 10 ML UDC PO PRN (05:34)
[2023-03-18] MEDS ORDERED: MAGNESIUM 1 GM/100 ML IVPB 100 ML IV SCH (06:00)
[2023-03-18] MEDS ORDERED: KCL 20 MEQ TAB (K-DUR) PO SCH (06:00)
[2023-03-18] MEDS ORDERED: POTASSIUM CL 10MEQ/50ML IVPB 50 ML IV SCH (06:00)
[2023-03-18] MEDS ORDERED: LIDOCAINE 2% VISCOUS 15 ML UDC PO NR (07:30)
--- NOTE | 2023-03-18 07:57 | Cardiology Progress Note ---
Subjective Date Seen by Provider: Mar 18, 2023 Time Seen by Provider: 07:56 Subjective/Events-last exam Patient was seen at bedside, laying down comfortably Feeling better Still in atrial fibrillation Review of Systems General: No Chills, No Night Sweats; Fatigue; No Malaise, No Appetite, No Other HEENT: No Head Aches, No Visual Changes, No Eye Pain, No Ear Pain, No Dysphasia, No Sinus Congestion, No Post Nasal Drip, No Sore Throat, No Other Pulmonary: No Dyspnea, No Cough, No Pleuritic Chest Pain, No Other Cardiovascular: No: Chest Pain, Palpitations, Orthopnea, Paroxysmal Noc. Dyspnea, Edema, Lt Headedness, Other Focused Exam Lactate Level 03/15/23 15:25: Lactic Acid Level 1.02 Objective-Cardiology Exam Last Set of Vital Signs Vital Signs 03/18/23 03/18/23 03/18/23 02:00 06:00 07:00 Pulse 96 Resp 19 B/P (MAP) 134/93 (107) Pulse Ox 90 O2 Delivery Room Air I&O Intake and Output 03/17/23 23:59 Intake Total 2627 ml Output Total 2800 ml Balance -173 ml Intake Oral 1127 ml IV Total 1500 ml Output Urine Total 2800 ml General: Alert, Oriented X3, Cooperative HEENT: Atraumatic, PERRLA Neck: Supple, No JVD, No Thyromegaly Lungs: Normal Air Movement, Other (Bilateral rhonchi) Heart: Normal S1, Normal S2, No Murmurs, Other (Atrial fibrillation) Abdomen: Normal Bowel Sounds, Soft, No Tenderness, No Hepatosplenomegaly, No Masses Extremities: No Clubbing, No Cyanosis, No Edema, Normal Pulses, No Tenderness/Swelling Skin: No Rashes, No Breakdown, No Significant Lesion Neuro: Normal Gait, Normal Speech, Strength at 5/5 X4 Ext, Normal Tone, Sensation Intact Psych/Mental Status: Mental Status NL, Mood NL Results Lab Laboratory Tests 03/18/23 04:32 A/P-Cardiology Admission Diagnosis Atrial fibrillation Tachycardia Pneumonia Fever Assessment/Plan Atrial fibrillation with rapid ventricular response Heart rate is better controlled on Cardizem I am planning to proceed with PAOLA Tachycardia, better controlled, still having few episodes of tachycardia. Pneumonia, right lower lobe, managed by medical team Palpitation. WALT REYES MD Mar 18, 2023 07:57
--- NOTE | 2023-03-18 07:57 | Cardiac Procedure Note-CS/ASA ---
Pre-Procedure Note Pre-Op Procedure Note Date of Available H&P: Mar 18, 2023 Date H&P Reviewed: Mar 18, 2023 Time H&P Reviewed: 07:57 History & Physical: H&P Reviewed, Patient Examed, No changes noted Pre-Operative Diagnosis: Atrial fibrillation Moderate Sedation PreProcedure Time 07:57 ASA Score 3 Airway Lungs Heart ASA score ASA 1: a normal healthy patient ASA 2: a patient with a mild systemic disease (mid diabetes, controlled hypertension, obesity ASA 3: a patient with a severe systemic disease that limits activity (angina, COPD, prior Myocardial infarction) ASA 4: a patient with an incapacitating disease that is a constant threat to life (CHF, renal failure) ASA 5: a moribund patient not expected to survive 24 hrs. (ruptured aneurysm) ASA 6: a declared brain- patient whose organs are being harvested. For emergent operations, add the letter E after the classification Mallampati Classification Grade 3 Sedation Plan Analgesia, Amnesia, Plan communicated to team members, Discussed options with patient/fam, Discussed risks with patient/fam The patient is an appropriate candidate to undergo the planned procedure, sedation, and anesthesia. The patient immediately re-assessed prior to indication. WALT REYES MD Mar 18, 2023 07:57
--- NOTE | 2023-03-18 08:25 | Anesthesia-General Post-Op ---
MAC Patient Condition Mental Status/LOC: Same as Preop Cardiovascular: Satisfactory Nausea/Vomiting: Absent Respiratory: Satisfactory Pain: Controlled Complications: Absent Post Op Complications Complications None Follow Up Care/Instructions Patient Instructions None needed. Anesthesiology Discharge Order Discharge Order Patient is awake and doing well, no complaints, stable vital signs, no apparent adverse anesthesia problems. No complications reported per nursing. THO SIMEON DO Mar 18, 2023 08:25
--- NOTE | 2023-03-18 08:43 | Cardioversion ---
Cardioversion PROCEDURE PHYSICIAN: Walt Javier DATE OF PROCEDURE: 03/18/23 DIRECT EXTERNAL ELECTRICAL CARDIOVERSION: Indications: Atrial Fibrillation with rapid ventricular rate Preoperative diagnoses: Atrial Fibrillation with rapid ventricular rate Postoperative diagnosis: Sinus rhythm, Successful Electrical Cardioversion History: 64-year-old gentleman with pneumonia, was noted to be in atrial fibrillation, response, started on Cardizem, scheduled for PAOLA which showed no clot or thrombus. 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 Electrical cardioversion was carried out with anesthesia support with propofol. 200 joules of synchronized shock was delivered through external patches which promptly restored sinus rhythm. The patient tolerated the procedure well. Conclusions: Successful electrical cardioversion terminating atrial fibrillation WALT JAVIER MD Mar 18, 2023 08:43
[2023-03-18] MEDS ORDERED: KCL 20 MEQ TAB (K-DUR) PO ONE (09:00)
[2023-03-18] MEDS ORDERED: proPOfol 200 MG/20 ML (DIPRIVAN) VIAL IV ONE (09:01)
[2023-03-18] MEDS: APIXABAN 5 MG (ELIQUIS) TABLET PO SCH (10:02)
[2023-03-18] MEDS: AZITHROMYCIN 250 MG TAB (ZITHROMAX) PO SCH (10:03)
[2023-03-18] MEDS: dilTIAZem120 MG (CARDIZEM CD) CAP PO SCH (10:03)
[2023-03-18] MEDS: dilTIAZem DRIP PRE-MIX 125 ML IV SCH (10:03)
[2023-03-18] MEDS ORDERED: CEPH500T PO (12:59)
[2023-03-18] MEDS ORDERED: AZIT250T12 PO (12:59)
[2023-03-18] MEDS ORDERED: APIX5TAB PO (12:59)
[2023-03-18] MEDS ORDERED: DILT-27 PO (12:59)
--- NOTE | 2023-03-18 13:01 | Discharge Inst-Simple/Standard ---
Discharge Inst-Standard Patient Instructions/Follow Up Plan of Care/Instructions/FU: Please continue to take your medications as written. Please follow up with your primary care doctor to follow up this hospital stay. Activity as Tolerated: Yes Discharge Diet: Cardiac Diet Return to The Hospital For: Chest pain, palpiations, shortness of breath, fever, weakness, if you feel you are getting worse. KATIE JOVEL MD Mar 18, 2023 13:01
--- NOTE | 2023-03-18 13:06 | Discharge Summary ---
Diagnosis/Chief Complaint Date of Admission Mar 15, 2023 at 18:05 Date of Discharge Discharge Date: Mar 18, 2023 Admission Diagnosis Sepsis due to CAP A fib with RVR Primary Care Vitor Richey Discharge Summary Discharge Physical Exam Allergies: Coded Allergies: codeine (Verified Allergy, Unknown, 03/15/23) Vitals & I&Os Vital Signs Date Time Temp Pulse Resp B/P (MAP) Pulse Ox O2 Delivery O2 Flow Rate FiO2 03/18/23 12:00 91 119/90 (100) 93 Room Air 03/18/23 08:00 36.9 03/18/23 02:00 19 Hospital Course Labs (last 24 hrs) Laboratory Tests 03/18/23 04:32: White Blood Count 8.9, Red Blood Count 4.49, Hemoglobin 13.3, Hematocrit 39L, Mean Corpuscular Volume 87, Mean Corpuscular Hemoglobin 30, Mean Corpuscular Hemoglobin Concent 34, Red Cell Distribution Width 13.1, Platelet Count 350, Mean Platelet Volume 10.0, Sodium Level 136, Potassium Level 3.9, Chloride Level 105, Carbon Dioxide Level 21, Anion Gap 10, Blood Urea Nitrogen 12, Creatinine 0.81, Estimat Glomerular Filtration Rate 100, BUN/Creatinine Ratio 15, Glucose Level 103, Calcium Level 8.3L, Phosphorus Level 2.9, Magnesium Level 2.0 Microbiology 03/15/23 MRSA Screen - Final, Complete MRSA not isolated 03/15/23 Urine Culture - Final, Complete NO GROWTH 03/15/23 Blood Culture - Preliminary, Resulted No growth Patient resulted labs reviewed. Imaging: Reviewed Imaging Report Discharge Home Medications: Active Scripts Active Cephalexin 500 Mg Tablet 500 Mg PO BID Azithromycin 250 Mg Tablet 250 Mg PO DAILY Eliquis (Apixaban) 5 Mg Tablet 5 Mg PO BID Diltiazem 24Hr ER (Diltiazem HCl) 120 Mg Cap.er.24h 120 Mg PO DAILY Instructions to patient/family Please see electronic discharge instructions given to patient. KATIE JOVEL MD Mar 18, 2023 13:06
== END 2023-03-18 14:00 | disposition home or self-care (01) | DRG 871 ==
LOC: EDUNIT# 14:50 → ER 14:56 → ICU 18:05
PROVIDERS: ADMIT Family Medicine; ATTEND Family Medicine
PROC: 5A2204Z Restoration of Cardiac Rhythm, Single (ICD-10-PCS; principal; 2023-03-18)
DX: A41.9 Sepsis, unspecified organism (principal); J18.9 Pneumonia, unspecified organism; I48.91 Unspecified atrial fibrillation; R00.2 Palpitations; I51.7 Cardiomegaly; I34.0 Nonrheumatic mitral (valve) insufficiency; M19.90 Unspecified osteoarthritis, unspecified site; Z20.822 Contact with and (suspected) exposure to COVID-19; Z28.310 Unvaccinated for COVID-19
CPT/HCPCS: 36415; 71045; 71275; 80048; 80053; 81000; 83605; 83735; 83880; 84100; 84484; 85025; 85027; 85379; 85610; 85730; 87040; 87081; 87088; 87636; 93005; 93306